=== PATIENT | male | born 1995 | race Caucasian/White ===

== ENCOUNTER 2021-07-26 07:29 | Emergency (ER) | payer OTHER ==
[2021-07-26 07:38] VITALS: BP 146/95
--- NOTE | 2021-07-26 07:50 | ED Physician Documentation ---
PD HPI BACK PAIN - Stated complaint Stated Complaint: BACK PAIN - Chief complaint Chief Complaint: Back Pain - History obtained from History obtained from: Patient - Additional information Additional information: Patient is a 25-year-old male presenting with right low back pain with radiation down the right leg. States has had similar pain like this in the past off and on for the last several years. States it has been becoming more frequent and more severe over the course of the last 2 weeks. His primary care is through the [facility] [place]. He denies any previous imaging of his back. Denies any trauma. He denies any saddle paresthesias, fever, IV drug abuse, lower extremity weakness. Review of Systems Ten Systems: 10 systems reviewed and negative Constitutional: denies: Fever Cardiac: denies: Chest pain / pressure GI: denies: Abdominal Pain : denies: Dysuria, Frequency, Hesitancy, Unable to Void, Incontinent Musculoskeletal: reports: Back pain Neurologic: denies: Generalized weakness, Focal weakness PD PAST MEDICAL HISTORY - Past Medical History Past Medical History: No - Past Surgical History Past Surgical History: No - Present Medications Home Medications: Ambulatory Orders Medication Instructions Recorded Confirmed Acetaminophen [Tylenol] 650 mg PO Q6H PRN #30 tablet 07/26/21 Ibuprofen [Motrin] 800 mg PO Q8H PRN #30 tablet 07/26/21 methocarbamoL [Robaxin] 500 mg PO Q6H PRN #20 tablet 07/26/21 - Allergies Allergies/Adverse Reactions: Allergies Allergy/AdvReac Type Severity Reaction Status Date / Time No Known Drug Allergies Allergy Verified 07/26/21 07:38 - Social History Does the pt smoke?: No Smoking Status: Never smoker PD ED PE NORMAL - Vitals Vital signs reviewed: Yes - General General: Alert and oriented X 3 - HEENT HEENT: Atraumatic - Neck Neck: Supple, no meningeal sign - Abdomen Abdomen: Normal bowel sounds PD ED PE EXPANDED - Back Back: Soft tissue tenderness (Soft tissue tenderness along the right para lumbar muscles), Straight leg raise + R, Straight leg raise + L. No: Vertebral tenderness, CVA TTP right, CVA TTP left Results - Vitals Vitals: Vital Signs - 24 hr 07/26/21 07:36 Temperature 36.3 C L Heart Rate 84 Respiratory 16 Rate Blood Pressure 146/95 H O2 Saturation 96 Oxygen O2 Source Room air PD MEDICAL DECISION MAKING - ED course Complexity details: d/w patient ED course: The patient is an otherwise healthy 25-year-old male presenting with acute on chronic right-sided low back pain with sciatica. Denied any fever, saddle paresthesias, changes bowel bladder habits or other red flags. For any trauma, IV drug abuse or other high risk history for acute spinal cord injury or compression. Did state that he has had similar pain like this on several occasions in the past. Physical exam demonstrated some right-sided para lumbar muscle tenderness to palpation without point tenderness to the spine itself. He had positive hips and contralateral straight leg raise. At this time there is no indication for imaging of the spine. He was given medication for pain in the emergency department including [place], Robaxin, Decadron, Toradol. I had a long and detailed discussion with the patient about methods for management of his back pain. Specifically we discussed regimented use of medication such as Motrin and Tylenol at home, the importance of maintaining physical activity as tolerated, as well as the importance of careful follow-up with primary care. He verbalized understanding of these things. I will discharge at this time for follow-up with primary care. Otherwise clear return precautions and follow-up instructions were given prior to discharge. Departure - Departure Disposition: 01 Home, Self Care Clinical Impression: Back pain, Sciatica Condition: Fair Instructions: ED Back Care Tips, ED Exercises Lumbar Muscles, ED Sciatica Prescriptions: methocarbamoL [Robaxin] 500 mg PO Q6H PRN #20 tablet PRN Reason: muscle spasm Comments: Thank You for allowing us to care for you today at [facility]. I have sent some prescriptions to your preferred pharmacy, [facility]. Please fill them as soon as possible. I recommend physical activity as tolerated. Please also stay well-hydrated over the course of the next few days. It is important that you follow-up with your primary care doctor soon as you are able. If it anytime you develop any new or worsening symptoms including worsening pain, fever, numbness or tingling around the genitalia or anus, loss of control of your bowel or bladder or any weakness in either of your legs it is important that you return to the emergency department immediately for further evaluation and treatment.
[2021-07-26] MEDS: KETOROLAC 60 MG/2 ML VIAL IM STA (08:02)
[2021-07-26] MEDS: CHERRY SYRUP 10 ML UDC PO ONE (08:02)
[2021-07-26] MEDS: DEXAMETHASONE 10 MG/ML VIAL PO STA (08:02)
[2021-07-26] MEDS: HYDROcod/ACETAM 5/325 MG TABLET PO STA (08:02)
[2021-07-26] MEDS: methocarbamoL 500 MG TABLET PO STA (08:03)
== END 2021-07-26 08:22 | disposition home or self-care (01) ==
LOC: ED 07:29
DX: M54.41 Lumbago with sciatica, right side (principal)
CPT/HCPCS: 96372; 99283; A9270

== ENCOUNTER 2021-09-29 13:34 | Outpatient (CLI) | payer OTHER ==
--- NOTE | 2021-09-29 15:34 | MRI Report ---
PROCEDURE: Lumbar Spine W/O INDICATIONS: LUMBAR WITH SCIATICA TECHNIQUE: Noncontrast sagittal T1 spin echo and T2 fast echo, sagittal STIR, axial T1 and T2 fast spin echo thr ough the lumbar spine. In cases with scoliosis, additional coronal T2 fast spin echo may be performe d. COMPARISON: None. FINDINGS: Image quality: Motion artifact is noted. Alignment and Curvature: There is normal bony alignment . Bone Marrow: Marrow is of normal overall signal. No acute vertebral body compression fractures. Spinal Cord: Conus medullaris terminates at the L1 level. Visualized cord demonstrates normal signa l and size. Paraspinous Soft Tissues: No paravertebral masses. T12-L1: Normal in appearance. L1-L2: Normal in appearance. L2-L3: Normal in appearance. L3-L4: At least moderate loss of disc height and disc signal can be seen. Schmorl's nodes can be se en of the inferior endplate of L3 and the superior endplate of L4, with mild surrounding edema. Minim al disc bulge can be seen at this level. No significant neural foraminal or central canal narrowing c an be seen. L4-L5: The disc height is well-preserved. There is loss of disc signal seen. Mild disc bulge is se en. A superimposed central/right disc extrusion is seen, with mild inferior migration of the disc ma terial. Mild to moderate facet hypertrophy is seen. There is moderate to severe bilateral neuroforami nal narrowing seen, left worse than right. Compression is seen upon the exiting nerve roots. Moder ate central canal narrowing is seen. L5-S1: The disc height is well-preserved. There is loss of disc signal seen. Mild disc bulge is se en. Mild facet hypertrophy is seen. At least moderate bilateral neuroforaminal narrowing can be se en. Minimal central canal narrowing is seen. IMPRESSION: Premature lower lumbar spine degenerative changes are seen, which are worst at the L4-L5 level, where there is a central/right disc extrusion, with associated moderate central canal narrowi ng. Moderate to severe bilateral neuroforaminal narrowing can also be seen at this level, with associ ated exiting nerve root compression. Schmorl's nodes can be seen at the L3-L4 level, with a subacute appearance. Reviewed by: Modesto Culver MD on 09/29/2021 2:33 PM [place] Approved by: Modesto Culver MD on 09/29/2021 2:33 PM [facility] Station ID: [id number]
== END 2021-09-29 13:35 | disposition home or self-care (01) ==
LOC: DI 13:34
PROVIDERS: ATTEND Student in an Organized Health Care Education/Training Program
DX: M51.26 Other intervertebral disc displacement, lumbar region (principal); M51.16 Intervertebral disc disorders with radiculopathy, lumbar region; M48.061 Spinal stenosis, lumbar region without neurogenic claudication; M47.816 Spondylosis without myelopathy or radiculopathy, lumbar region; M47.817 Spondylosis without myelopathy or radiculopathy, lumbosacral region; M48.07 Spinal stenosis, lumbosacral region